=== PATIENT | female | born 1955 | race Two or more races ===

== ENCOUNTER 2020-05-08 05:20 | Emergency (ER) | payer MEDICARE ==
[~2020-05-08] VITALS: Ht 162.6 cm; Wt 68.0 kg
[2020-05-08 05:25] VITALS: BP 159/84
== END 2020-05-08 05:55 | disposition left against medical advice (07) ==
LOC: ED 05:20
DX: Z53.21 Procedure and treatment not carried out due to patient leaving prior to being seen by health care provider (principal)
CPT/HCPCS: 83880